=== PATIENT | female | born 1985 | race Caucasian/White ===

== ENCOUNTER 2017-06-24 05:30 | Inpatient (IN) | payer BC, SELFPAY ==
[2017-06-21 09:17] VITALS: BMI 35.2
[2017-06-24] VITALS (20 sets, daily range): BP systolic 83–123; BP diastolic 49–82; PULSE 56–83; RESP 16–18; TEMP 36.1–37.2; O2SAT 97–100
[2017-06-24] MEDS: Lactated Ringers 1,000 ML 999 ML IV (06:00)
[2017-06-24 06:21] LABS: Hematocrit 34.4 % (37-47); Hemoglobin 11.4 g/dl (12.0-15.0); Mean Corp Hgb Conc 33.1 g/gl (32-36); Mean Corpuscular Hgb 26.8 pg (27.0-32.0); Mean Corpuscular Volume 80.9 fL (81-99); Mean Platelet Vol. 13.3 fl (6.2-12.0); Platelet Count 126 K/mm3 (150-450); RBC Distribution Width CV 14.3 % (11.6-14.6); RBC Distribution Width SD 41.5 fl (35.1-43.9); Red Blood Count 4.25 M/mm3 (4.2-5.4); White Blood Count 11.1 K/mm3 (4.4-11.0)
[2017-06-24 06:23] LABS: Scan Indicated on CBC? Y/N NO
[2017-06-24] MEDS: Sodium Citrate/Citric Acid 30 ML UDC PO (07:00)
[2017-06-24] MEDS: Lactated Ringers 1,000 ML 150 ML IV (07:02)
[2017-06-24] MEDS: Cefazolin 2 GM in 0.9% Normal Saline 100 ML IV (07:30)
--- NOTE | 2017-06-24 07:51 | FALS_PTH ---
PATIENT: COLTON KEY LOC: [facility] U#:[id number] AGE/SX: 31/F ROOM: WP005 RE06/24/[address]: Dr. Sydnee Barrientos MD : 1985 BED: 1 DIS: 06/26/2017 SPEC #: [id number] RECD: 06/24/17 09:28 STATUS: JANET MALIA #: [id number] MAXIMO: 06/24/17 07:[address]: Sydnee Barrientos DEPT: SURGICAL PATHOLOGY RECD BY: Carmine Bustamante ENTERED: 06/24/17 12:23 SP TYPE: FALL TUBES OTHR DR: Annita Primary Care Phys Tissues: Fallopian tube Procedures: Surgery Specimen Level II HEADER OPERATION: Tubal ligation PRE-OP DIAGNOSIS: Tubal ligation TISSUE SUBMITTED: Fallopian tubes MICROSCOPIC DIAGNOSIS Bilateral fallopian tubes, salpingectomy: Bilateral fallopian tubes including fimbrial ends, no pathologic diagnosis. JILLIAN:mckinley 06/27/17 MICROSCOPIC DESCRIPTION Slides are reviewed. GROSS DESCRIPTION Received in fixative is one container labeled with the patient's name and designated tie on right tube. The specimen consists of bilateral fallopian tubes including fimbrial ends. The right tube is identified by a suture. The right tube measures 6 cm in length and 0.5 cm in diameter. The left fallopian tube measures 7.5 cm in length and 0.6 cm in diameter. Sections reveal unremarkable cut surfaces. Gristmiller sections are submitted in two cassettes as follows: 1 - right fallopian tube, 2 - left fallopian tube. / SJ:rg 06/24/17 TC:4 CPT: 58550 x2
[2017-06-24] MEDS: Oxytocin 30 units/NS 500 ml 30 UNITS/500 ML IV.SOLN 167 UNITS IV (07:53)
--- NOTE | 2017-06-24 08:44 | PCM.OB.CSR ---
Delivery Classification: Scheduled Final MONICA: 06/23/17 Final MONICA Source: US <20 weeks Gestational age: 40 Weeks and 1 Days Indications for : Repeat Elective , Desires elective sterilization Description of Procedure: The patient was taken to the operating room. She was prepped and draped in the dorsal supine position with a leftward tilt. A Pfannenstiel skin incision was made approximately 2 cm above the symphysis pubis and carried through to underlying layer fascia with the scalpel. The fascia was incised incised in the midline and extended laterally with the Fang scissors. The fascia was dissected off the rectus muscles with blunt and sharp dissection. The rectus muscles were in the midline and the peritoneum was entered bluntly. The peritoneal incision was stretched and the bladder blade was placed. The uterine incision was made in a low transverse fashion with the scalpel and extended superiorly and inferiorly with blunt dissection. The amniotic membranes were ruptured bluntly and clear amniotic fluid returned. The infant's head was brought to the incision in the flexed position and delivered without difficulty. The remainder of the infant was delivered with gentle traction and fundal pressure in the standard fashion. The mouth and nares were bulb suctioned. The cord was clamped and cut as the was stimulated. Cord clamping was delayed. The infant was handed off to the waiting nursing staff. The placenta was delivered with fundal massage and gentle traction in the standard fashion. The uterus was exteriorized and cleared of all clots and debris. The cervix was dilated with a ring forcep. The uterine incision was closed with #1 Vicryl in a running locked fashion. A second layer of the same suture was used in an imbricating fashion and the incision was examined for hemostasis. A hqkerc-bs-[id number] suture was needed in the midline and then hemostasis was noted. The right tube was identified and followed out to the fimbriated end. The insertion near the cornual edge of the uterus was clamped across with a Sarah clamp. The antimesenteric portions of the tube were clamped across with Sarah clamps. the tube was removed from the uterus and the broad ligament with Metzenbaum scissors. The pedicles were oversewn with 3-0 Vicryl sutures and free ties. The pedicles were hemostatic and the same procedure was performed on the contralateral side. Both sides were confirmed to be hemostatic. The uterus was placed back into the peritoneal cavity and hemostasis was assured. The rectus muscles were examined and any bleeding was Bovie cauterized. The rectus muscles and parietal peritoneum were closed en bloc with an 0 Vicryl suture in a running fashion. The rectus fascia was examined and the bleeding was Bovie cauterized and the rectus fascia was closed with 1 Vicryl suture in a running standard fashion. The subcutaneous tissue was examining and any bleeding was Bovie cauterized. The subcutaneous tissue was reapproximated with 3-0 Vicryl suture. The skin was closed in a subcuticular fashion by the ENGINEERING TECHNICAL WRITER with me present in the labor and delivery suite. All sponge, lap, and needle counts were correct. The patient was taken to her room for recovery in a stable condition. Amniotic Membrane Rupture Type: Artificial Amniotic Fluid Description: Clear Placenta Disposition: [facility] Drain: Velásquez to straight drain Fluids Replaced: LR Cord Entanglement: Around neck x 1, loose Nuchal Cord Compression: Without compression Cord Vessel Description: 3 Vessels Esitmated Blood Loss (ml): 800 cc Infant Gender: Female (1 minute): 8 (5 minute): 9 Delayed cord clamping: Yes Pre-op Antibiotic Given: Ancef 2 grams IV x1 Complications: None - Admit VTE Documentation VTE Present on Admission: No VTE Mechan Device Prophylaxis: SCD's VTE Pharm Prophylaxis ordered?: No Reason prophylaxis not ordered:: Procedure Not Indicated
--- NOTE | 2017-06-24 08:49 | OP.PCM_ITS ---
Delivery Classification: Scheduled Final MONICA: 06/23/17 Final MONICA Source: US <20 weeks Gestational age: 40 Weeks and 1 Days Indications for : Repeat Elective , Desires elective sterilization Description of Procedure: The patient was taken to the operating room. She was prepped and draped in the dorsal supine position with a leftward tilt. A Pfannenstiel skin incision was made approximately 2 cm above the symphysis pubis and carried through to underlying layer fascia with the scalpel. The fascia was incised incised in the midline and extended laterally with the Fang scissors. The fascia was dissected off the rectus muscles with blunt and sharp dissection. The rectus muscles were in the midline and the peritoneum was entered bluntly. The peritoneal incision was stretched and the bladder blade was placed. The uterine incision was made in a low transverse fashion with the scalpel and extended superiorly and inferiorly with blunt dissection. The amniotic membranes were ruptured bluntly and clear amniotic fluid returned. The infant' s head was brought to the incision in the flexed position and delivered without difficulty. The remainder of the was delivered with gentle traction and fundal pressure in the standard fashion. The mouth and nares were bulb suctioned. The cord was clamped and cut as the was stimulated. Cord clamping was delayed. The was handed off to the waiting nursing staff. The placenta was delivered with fundal massage and gentle traction in the standard fashion. The uterus was exteriorized and cleared of all clots and debris. The cervix was dilated with a ring forcep. The uterine incision was closed with #1 Vicryl in a running locked fashion. A second layer of the same suture was used in an imbricating fashion and the incision was examined for hemostasis. A qshpmm-qf-jhgfo suture was needed in the midline and then hemostasis was noted. The right tube was identified and followed out to the fimbriated end. The insertion near the cornual edge of the uterus was clamped across with a Sarah clamp. The antimesenteric portions of the tube were clamped across with Sarah clamps. the tube was removed from the uterus and the broad ligament with Metzenbaum scissors. The pedicles were oversewn with 3-0 Vicryl sutures and free ties. The pedicles were hemostatic and the same procedure was performed on the contralateral side. Both sides were confirmed to be hemostatic. The uterus was placed back into the peritoneal cavity and hemostasis was assured. The rectus muscles were examined and any bleeding was Bovie cauterized. The rectus muscles and parietal peritoneum were closed en bloc with an 0 Vicryl suture in a running fashion. The rectus fascia was examined and the bleeding was Bovie cauterized and the rectus fascia was closed with 1 Vicryl suture in a running standard fashion. The subcutaneous tissue was examining and any bleeding was Bovie cauterized. The subcutaneous tissue was reapproximated with 3-0 Vicryl suture. The skin was closed in a subcuticular fashion by the CONCRETE RUBBER with me present in the labor and delivery suite. All sponge, lap, and needle counts were correct. The patient was taken to her room for recovery in a stable condition. Amniotic Membrane Rupture Type: Artificial Amniotic Fluid Description: Clear Placenta Disposition: [facility] Drain: Velásquez to straight drain Fluids Replaced: LR Cord Entanglement: Around neck x 1, loose Nuchal Cord Compression: Without compression Cord Vessel Description: 3 Vessels Esitmated Blood Loss (ml): 800 cc Infant Gender: Female (1 minute): 8 (5 minute): 9 Delayed cord clamping: Yes Pre-op Antibiotic Given: Ancef 2 grams IV x1 Complications: None - Admit VTE Documentation VTE Present on Admission: No VTE Mechan Device Prophylaxis: SCD's VTE Pharm Prophylaxis ordered?: No Reason prophylaxis not ordered:: Procedure Not Indicated
--- NOTE | 2017-06-24 09:16 | DCINST_ITS ---
Discharge Diet: No Restrictions Discharge Activity: Return to Normal Activity, May Not Drive - for 2 weeks, May not drive while taking narcotic pain medications., May Shower, May Take a Tub Bath - in 7 days. May resume sexual activity in: 4-6 weeks Lifting Restrictions: 20 pounds Additional Activity Instructions:: Nothing in the vagina for 4-6 weeks. You may return to work/school in 6 weeks. Call your doctor if your incision/area has: Continuous Slow Oozing, Sudden Increased Bleeding, Increased Pain/ Swelling, Increased Redness, Foul Smelling Discharge Call your doctor if you observe: Fever of 101 or Higher, Using more than one pad per hour - for 2 hours Suture Line Care: Avoid Pulling/Pushing, Avoid Pinching/Bending Cleanse incision/area with: Keep Dressing Clean & Dry Additional Instructions: If you experience any of the following, contact your healthcare provider. * Bleeding that soaks a pad every hour for 2 hours * Fever 100.4 or higher * Unrelieved incision or abdominal pain * Swelling, redness, discharge or bleeding from your incision or episiotomy site * Your incision begins to separate * Problems urinating (including inability to urinate or burning while urinating) . * Visual changes * Severe headache * Flu-like symptoms * Pain or redness in one of both of your breasts * Pain, warmth, tenderness or swelling in your legs, especially the calf area * Frequent nausea and vomiting * Symptoms of depression or anxiety If you experience any of the following, call 911 or go to the nearest Emergency Room. * Chest pain * Problems breathing * Seizure activity * Partial or complete paralysis of a body part, slurred speech, weakness or drooping of the face, or a sudden inability to walk or hold your balance Allergies/Adverse Reactions: Allergies acetaminophen [From Percocet] Adverse Reaction (Verified 06/24/17 06:15) Vomiting oxycodone [From Percocet] Adverse Reaction (Verified 06/24/17 06:15) Vomiting Medications to take at Discharge Vits [Prenatabs FA ] 1 tablet PO DAILY 11/02/15 Calcium Carbonate [Tums] 200 mg PO PRN PRN 06/21/17 Ferrous Sulfate [Iron] 325 mg PO QODAY 06/21/17 Hydrocodone/Acetaminophen [[place] 5-325 Tablet] 1 - 2 each PO Q6H PRN PRN 7 Days #30 tablet 06/24/17 Ibuprofen [Motrin] 600 mg PO Q6H PRN #60 tab 06/24/17 The following prescriptions were given: Hydrocodone/Acetaminophen [[place] 5-325 Tablet] 1 - 2 each PO Q6H PRN PRN 7 Days #30 tablet PRN Reason: Pain Ibuprofen [Motrin] 600 mg PO Q6H PRN #60 tab PRN Reason: Pain Orders to be completed after discharge: Electric breast pump Location: None Selected Follow-Up: Call to make an appointment with your doctor for an incision check in 1-2 weeks. You will also need a 6 week post- follow up appointment. Please Follow Up With: Sydnee Barrientos MD - Call to make an appointment for an incision check in 1-2 [phone] When: You will need a post check in 6 weeks. Primary Care Physician: Care Physician,No Primary [Primary Care Provider] -
--- NOTE | 2017-06-24 09:44 | NURSING ---
Pt asymptomatic. Iv fluid bolus of 200cc initiated as prescaution to maintain BP
[2017-06-24 10:06] LABS: Pathology Specimen OB SEE PATHOLOGY REPORT
--- NOTE | 2017-06-24 10:06 | NURSING ---
remains asymptomatic. filiberto in room. reviewed pt BP, informed of iv bolus. continue to monitor
[2017-06-24] MEDS: Lactated Ringers 1,000 ML 100 ML IV (12:10)
[2017-06-24] MEDS: Ketorolac 30 MG/ML Syringe IV ×3 (12:20→23:59)
[2017-06-24] MEDS: 0.9% Saline Lock 10 ML Syringe IV ×2 (12:21→12:46)
[2017-06-24] MEDS: proMETHazine 25 MG/ML Syringe 12.5 MG IV (12:45)
[2017-06-24] MEDS: Senna/Docusate Sodium 1 Tablet PO (23:59)
[2017-06-25] VITALS (8 sets, daily range): BP systolic 103–118; BP diastolic 56–72; PULSE 57–74; RESP 16–20; TEMP 36.8–37.7; O2SAT 98–99
[2017-06-25] MEDS: Lactated Ringers 1,000 ML 100 ML IV
[2017-06-25] MEDS: Ketorolac 30 MG/ML Syringe IV ×4 (06:13→23:49)
[2017-06-25 06:59] LABS: Hematocrit 29.7 % (37-47); Hemoglobin 9.5 g/dl (12.0-15.0); Mean Corpuscular Hgb 26.5 pg (27.0-32.0); Mean Corpuscular Volume 82.7 fL (81-99); Mean Platelet Vol. 12.9 fl (6.2-12.0); Platelet Count 94 K/mm3 (150-450); RBC Distribution Width CV 14.3 % (11.6-14.6); RBC Distribution Width SD 41.9 fl (35.1-43.9); Red Blood Count 3.59 M/mm3 (4.2-5.4); White Blood Count 8.7 K/mm3 (4.4-11.0)
[2017-06-25 07:06] LABS: Scan Indicated on CBC? Y/N NO
[2017-06-25] MEDS: Senna/Docusate Sodium 1 Tablet PO (09:29)
[2017-06-25] MEDS: 0.9% Saline Lock 10 ML Syringe IV ×3 (11:53→23:50)
--- NOTE | 2017-06-25 14:07 | PCM.PN.BLA ---
Progress Note S: Patient sitting up in bed attempting to breastfeed at this time. Patient's family at bedside providing support. Patient reports that baby has been drowsy this morning and not interested in latching as much. Patient planning on meeting with mergers and acquisitions consultant today for additional support. Patient denies any complaints or concerns. Patient denies scotoma, dizziness or LIMON. O: VSS, Afebrile, H/H = 11.4/34/4 --> 9.5/29.7 Nipples without cracks or blisters, breasts soft and filling Abdomen NT x 4 quadrants, FF @FB below umbilicus, Dressing Dry and Intact +2/4 reflexes in LE, no edema noted, negative calf tenderness to palpation scant rubra lochia A: 31 y/o, POD #1 s/p Repeat LTCS, Normal Course, Asymptomatic Anemia P: 1) Continue present management 2) Anticipate discharge to home tomorrow pending discharge Zeina Ramírez CNM
--- NOTE | 2017-06-25 14:13 | PN_ITS ---
Progress Note S: Patient sitting up in bed attempting to breastfeed at this time. Patient's family at bedside providing support. Patient reports that baby has been drowsy this morning and not interested in latching as much. Patient planning on meeting with absence management consultant today for additional support. Patient denies any complaints or concerns. Patient denies scotoma, dizziness or LIMON. O: VSS, Afebrile, H/H = 11.4/34/4 --> 9.5/29.7 Nipples without cracks or blisters, breasts soft and filling Abdomen NT x 4 quadrants, FF @FB below umbilicus, Dressing Dry and Intact +2/4 reflexes in LE, no edema noted, negative calf tenderness to palpation scant rubra lochia A: 31 y/o, POD #1 s/p Repeat LTCS, Normal Course, Asymptomatic Anemia P: 1) Continue present management 2) Anticipate discharge to home tomorrow pending discharge Zeina Ramírez CNM
--- NOTE | 2017-06-25 17:21 | NURSING ---
[id number] While rounding, Mom states that nursing is going very well. Mom has been pretty independent with latching onto breast. Encouraged to call if any further questions or concerns with feedings. Zayda
[2017-06-26 02:00] VITALS: BP 122/80; PULSE 68; RESP 16; TEMP 37.2; O2SAT 98
[2017-06-26] MEDS: Ketorolac 30 MG/ML Syringe IV (05:50)
[2017-06-26] MEDS: 0.9% Saline Lock 10 ML Syringe IV (05:50)
[2017-06-26] MEDS: Acetaminophen 500 MG Tablet 1000 MG PO (06:38)
[2017-06-26 08:00] VITALS: BP 122/77; PULSE 64; RESP 16; TEMP 37.3; O2SAT 97
--- NOTE | 2017-06-26 10:06 | PN_ITS ---
Progress Note S: Patient sitting up in bed, no complaints mentioned at this time. going well. Patient reports minimal pain and discomfort. Denies issues with urination or ambulation. Patient desires discharge to home. O: VSS, Afebrile Nipples without cracks or blisters, no erythema noted Abdomen NT x 4 quadrants, dressing dry and intact. No blood or exudate noted on dressing +2/4 reflexes in LE, negative calf tenderness to palpation, no edema noted Scant rubra lochia A: 31 y/o s/p repeat LTCS with BTL, POD #2, Normal Course P: 1) Discharge to home pending discharge 2) Anticipatory health teaching for PP period done 3) Follow-up at [facility] in 1-2 weeks for incision check visit, then PP visit at 6 weeks PP. Zeina Ramírez CNM
--- NOTE | 2017-06-26 10:10 | PCM.DC.SUM ---
Discharge Date and Diagnosis Date of Admission: 06/24/17 Date of Discharge: 06/26/17 - Primary Discharge Diagnosis POD #2 s/p Repeat LTCS with BTL in Stable Condition Hospital Course and Treatment Imaging Results: None None Operations: - - Section with BTL Procedures: None Summary of Care Provided: The patient is a 31 year old F who presented for scheduled repeat LTCS with BTL. Surgery occurred without complication and patient discharged to home today in stable and good condition. Discharge Diet: No Restrictions Discharge Activity: Return to Normal Activity, May Not Drive - for 2 weeks, May not drive while taking narcotic pain medications., May Shower, May Take a Tub Bath - in 7 days. May resume sexual activity in: 4-6 weeks Additional Activity Instructions:: Nothing in the vagina for 4-6 weeks. You may return to work/school in 6 weeks. Call your doctor if your incision/area has: Continuous Slow Oozing, Sudden Increased Bleeding, Increased Pain/ Swelling, Increased Redness, Foul Smelling Discharge Call your doctor if you observe: Fever of 101 or Higher, Using more than one pad per hour - for 2 hours Suture Line Care: Avoid Pulling/Pushing, Avoid Pinching/Bending Cleanse incision/area with: Keep Dressing Clean & Dry Home Medications: Medications to take at Discharge Vits [Prenatabs FA ] 1 tablet PO DAILY 11/02/15 Calcium Carbonate [Tums] 200 mg PO PRN PRN 06/21/17 Ferrous Sulfate [Iron] 325 mg PO QODAY 06/21/17 Hydrocodone/Acetaminophen [[place] 5-325 Tablet] 1 - 2 each PO Q6H PRN PRN 7 Days #30 tablet 06/24/17 Ibuprofen [Motrin] 600 mg PO Q6H PRN #60 tab 06/24/17 Following Prescrptions Were Given to Patient: Hydrocodone/Acetaminophen [[place] 5-325 Tablet] 1 - 2 each PO Q6H PRN PRN 7 Days #30 tablet PRN Reason: Pain Ibuprofen [Motrin] 600 mg PO Q6H PRN #60 tab PRN Reason: Pain Other Amb Orders: Electric breast pump Location: None Selected Primary Care Physician: Care Physician,No Primary [Primary Care Provider] - Please Follow Up With: Sydnee Barrientos MD - Call to make an appointment for an incision check in 1-2 [phone] When: You will need a post check in 6 weeks. Disposition: Home Patient Condition:: Good Medical Necessity - Tobacco Use Smoking Status: Former smoker Tobacco Use: Non-smoker Meaningful Use Info Meaningful Use Diagnoses (Choose all that apply): None applicable
--- NOTE | 2017-06-26 10:14 | DS.PCM_ITS ---
Discharge Date and Diagnosis Date of Admission: 06/24/17 Date of Discharge: 06/26/17 - Primary Discharge Diagnosis POD #2 s/p Repeat LTCS with BTL in Stable Condition Hospital Course and Treatment Imaging Results: None None Operations: - - Section with BTL Procedures: None Summary of Care Provided: The patient is a 31 year old F who presented for scheduled repeat LTCS with BTL. Surgery occurred without complication and patient discharged to home today in stable and good condition. Discharge Diet: No Restrictions Discharge Activity: Return to Normal Activity, May Not Drive - for 2 weeks, May not drive while taking narcotic pain medications., May Shower, May Take a Tub Bath - in 7 days. May resume sexual activity in: 4-6 weeks Additional Activity Instructions:: Nothing in the vagina for 4-6 weeks. You may return to work/school in 6 weeks. Call your doctor if your incision/area has: Continuous Slow Oozing, Sudden Increased Bleeding, Increased Pain/ Swelling, Increased Redness, Foul Smelling Discharge Call your doctor if you observe: Fever of 101 or Higher, Using more than one pad per hour - for 2 hours Suture Line Care: Avoid Pulling/Pushing, Avoid Pinching/Bending Cleanse incision/area with: Keep Dressing Clean & Dry Home Medications: Medications to take at Discharge Vits [Prenatabs FA ] 1 tablet PO DAILY 11/02/15 Calcium Carbonate [Tums] 200 mg PO PRN PRN 06/21/17 Ferrous Sulfate [Iron] 325 mg PO QODAY 06/21/17 Hydrocodone/Acetaminophen [[place] 5-325 Tablet] 1 - 2 each PO Q6H PRN PRN 7 Days #30 tablet 06/24/17 Ibuprofen [Motrin] 600 mg PO Q6H PRN #60 tab 06/24/17 Following Prescrptions Were Given to Patient: Hydrocodone/Acetaminophen [[place] 5-325 Tablet] 1 - 2 each PO Q6H PRN PRN 7 Days #30 tablet PRN Reason: Pain Ibuprofen [Motrin] 600 mg PO Q6H PRN #60 tab PRN Reason: Pain Other Amb Orders: Electric breast pump Location: None Selected Primary Care Physician: Care Physician,No Primary [Primary Care Provider] - Please Follow Up With: Sydnee Barrientos MD - Call to make an appointment for an incision check in 1-2 [phone] When: You will need a post check in 6 weeks. Disposition: Home Patient Condition:: Good Medical Necessity - Tobacco Use Smoking Status: Former smoker Tobacco Use: Non-smoker Meaningful Use Info Meaningful Use Diagnoses (Choose all that apply): None applicable
== END 2017-06-26 11:12 | disposition home or self-care (01) | DRG 766 ==
PROVIDERS: Admitting Provider Obstetrics & Gynecology; Visit Provider Obstetrics & Gynecology
DX: O34.211 Maternal care for low transverse scar from previous cesarean delivery (principal); Z30.2 Encounter for sterilization; Z3A.40 40 weeks gestation of pregnancy; Z87.891 Personal history of nicotine dependence; Z37.0 Single live birth
CPT/HCPCS: 59025; 85027; 86850; 86900; 88302; 99218; J7120; A4216; G0378; J2405

== ENCOUNTER 2017-06-27 13:30 | Day surgery (SDC) | payer BC, SELFPAY | END 2017-06-27 15:05 | LOC: SDC 13:56 → ACINP 13:57 | PROVIDERS: Visit Provider Anesthesiology | PROC: 3E0R3GC Introduction of Other Therapeutic Substance into Spinal Canal, Percutaneous Approach (ICD-10-PCS; CPT 62273; principal; 2017-06-27 13:25) | DX: G97.1 Other reaction to spinal and lumbar puncture (principal); Y84.4 Aspiration of fluid as the cause of abnormal reaction of the patient, or of later complication, without mention of misadventure at the time of the procedure; Y92.9 Unspecified place or not applicable | CPT/HCPCS: 62273; J7030; J7120 ==